=== PATIENT | male | born 1950 ===

== ENCOUNTER 2024-05-11 00:26 | Emergency (ER) | payer SELFPAY ==
[2024-05-11] MEDS: MIDAZOLAM INJ 2MG/2ML VIAL IM STA (00:55)
[2024-05-11 01:10] VITALS: TEMP 97.1
[2024-05-11] MEDS: LORazepam 2 MG/ML 1ML VIAL IM STA (01:55)
[2024-05-11 06:40] VITALS: O2SAT 95
[2024-05-11] MEDS: BOOSTRIX VACCINE (TETANUS/DIPHTH/ACEL. PERTUSSIS) 0.5ML SYR IM.IMMUN ONE (07:58)
[2024-05-11 08:07] VITALS: BP 131/69
== END 2024-05-11 08:05 | disposition home or self-care (01) ==
LOC: M ED 00:26
DX: S00.03XA Contusion of scalp, initial encounter (principal); Y92.9 Unspecified place or not applicable; Y93.9 Activity, unspecified; Y99.9 Unspecified external cause status; F10.120 Alcohol abuse with intoxication, uncomplicated; Z23 Encounter for immunization
CPT/HCPCS: 70450; 72125; 90471; 90715; 96372; 99285; J2060; J2250